=== PATIENT | female | born 1940 | race Caucasian/White ===

== ENCOUNTER 2022-02-26 11:06 | Inpatient (IN) | payer MEDICARE, OTHER ==
[~2022-02-26] VITALS: Ht 157.5 cm; Wt 56.3 kg
[2022-02-26 11:59] LABS: HEMOGLOBIN 15.1 gm/dl (12.3-15.3); RED BLOOD COUNT 4.6 M/UL (4.00-5.10); WHITE BLOOD COUNT 12.5 K/UL (4.5-11.0)
[2022-02-26] MEDS ORDERED: LOVASTATIN40 MG PO (14:11)
[2022-02-26] MEDS ORDERED: KLONOPIN TAB 00.5 MG PO (14:11)
[2022-02-26] MEDS ORDERED: AMLODIPINE-BEN1 EACH PO (14:12)
[2022-02-26] MEDS ORDERED: LOPRESSOR 50 MG50 MG PO (14:12)
[2022-02-26] MEDS ORDERED: ECOTRIN81 MG PO (14:13)
[2022-02-26] MEDS ORDERED: PROTONIX 40 MG40 M1 PO (14:13)
[2022-02-26] MEDS ORDERED: NITROSTAT0.4 MG SL (14:14)
[2022-02-26] MEDS ORDERED: MAG-OX 400 TAB400 MG PO (14:14)
[2022-02-27 01:39] LABS: HEMOGLOBIN 12.9 gm/dl (12.3-15.3); RED BLOOD COUNT 4.01 M/UL (4.00-5.10); WHITE BLOOD COUNT 7.7 K/UL (4.5-11.0)
[2022-02-27 02:03] LABS: BUN/CREATININE RATIO 10 (0-10)
[2022-02-27] MEDS ORDERED: ELIQUIS 2.5 MG2.5 MG PO (14:48)
== END 2022-02-27 15:45 | disposition home or self-care (01) | DRG 309 ==
LOC: ER1 11:06 → CDU 13:24 → PROG CARE 16:38
PROVIDERS: Emergency Medicine; Physician Assistant; ADMIT Internal Medicine
PROC: B24BZZZ Ultrasonography of Heart with Aorta (ICD-10-PCS; principal; 2022-02-27)
PROC: 5A2204Z Restoration of Cardiac Rhythm, Single (ICD-10-PCS; 2022-02-27)
DX: I48.91 Unspecified atrial fibrillation (principal); F15.20 Other stimulant dependence, uncomplicated; I25.10 Atherosclerotic heart disease of native coronary artery without angina pectoris; Z20.822 Contact with and (suspected) exposure to COVID-19; Z95.5 Presence of coronary angioplasty implant and graft; K21.9 Gastro-esophageal reflux disease without esophagitis; I08.0 Rheumatic disorders of both mitral and aortic valves; I10 Essential (primary) hypertension; E78.5 Hyperlipidemia, unspecified; F17.210 Nicotine dependence, cigarettes, uncomplicated; Z79.01 Long term (current) use of anticoagulants; Z79.82 Long term (current) use of aspirin; Z98.42 Cataract extraction status, left eye; Z98.41 Cataract extraction status, right eye; Z88.2 Allergy status to sulfonamides; Z88.8 Allergy status to other drugs, medicaments and biological substances; Z83.3 Family history of diabetes mellitus; I25.2 Old myocardial infarction
CPT/HCPCS: ECHO; 36415; 71045; 80053; 82550; 82553; 83735; 84439; 84443; 84484; 85025; 93005; 93306; 96372; 99285; J1650; J2704; U0002